=== PATIENT | female | born 1960 | race Caucasian/White ===

== ENCOUNTER 2020-09-05 13:09 | Emergency (ER) | payer OTHER ==
[~2020-09-05] VITALS: Ht 177.8 cm; Wt 97.5 kg
[2020-09-05 13:57] LABS: BASOPHILS ABSOLUTE AUTO 0.06 K/mm3 (0.00-0.23); BASOPHILS PERCENT AUTO 1 % (0-2); EOSINOPHILS ABSOLUTE AUTO 0.21 K/mm3 (0.00-0.68); EOSINOPHILS PERCENT AUTO 3 % (0-6); Hematocrit 43.3 % (33.0-51.0); Hemoglobin 14.2 g/dL (11.5-16.0); IMMATURE GRAN ABSOLUTE AUTO 0.02 K/mm3 (0.00-0.10); IMMATURE GRAN PERCENT AUTO 0 % (0-1); LYMPHOCYTES ABSOLUTE AUTO 2.08 K/mm3 (0.84-5.20); LYMPHOCYTES PERCENT AUTO 27 % (21-46); MONOCYTES ABSOLUTE AUTO 0.51 K/mm3 (0.16-1.47); MONOCYTES PERCENT AUTO 7 % (4-13); Mean Corpuscular HGB 32.3 pg (26.0-34.0); Mean Corpuscular HGB Conc 32.8 g/dL (31.5-36.5); Mean Corpuscular Volume 99 fL (80-100); Mean Platelet Volume 9.7 fL (9.1-12.4); NEUTROPHILS ABSOLUTE AUTO 4.82 K/mm3 (1.96-9.15); NEUTROPHILS PERCENT AUTO 63 % (41-73); Platelet Count 252 K/mm3 (150-400); RDW Coefficient Variation 13.2 % (11.7-14.2); RDW Standard Deviation 47.5 fL (35.1-46.3); Red Blood Cell Count 4.39 M/mm3 (3.80-5.20)
[2020-09-05 14:22] LABS: Alanine Aminotransfer (ALT/SGP 105 U/L (12-78); Albumin, Blood 3.9 g/dL (3.4-5.0); Albumin/Globulin Ratio 1.1 (0.8-1.8); Alk Phos 67 U/L (50-136); Anion Gap 7 mmol/L (6-16); Aspartate Aminotrans (AST/SGOT 113 U/L (12-37); Bilirubin, Total 0.7 mg/dL (0.1-1.0); Blood Urea Nitrogen 19 mg/dL (8-24); Bun/Creatinine Ratio 24.1 (12.0-20.0); CO2, Blood 28 mmol/L (21-32); Calcium, Blood 9.4 mg/dL (8.5-10.1); Chloride, Blood 106 mmol/L (98-108); Creatinine, Blood 0.79 mg/dL (0.40-1.00); Globulin, Blood 3.7 g/dL (2.2-4.0); Glomerular Filtration Rate >60 (60-); Glucose, Blood 92 mg/dL (70-99); Sodium, Blood 141 mmol/L (136-145); Total Protein, Blood 7.6 g/dL (6.4-8.2)
[2020-09-05] MEDS ORDERED: MIRALAX PO (20:06)
[2020-09-05] MEDS ORDERED: Valium5 MG PO (20:06)
[2020-09-05] MEDS ORDERED: DOCU100 PO (20:06)
[2020-09-05] MEDS ORDERED: Prednisone20 MG PO (20:06)
== END 2020-09-05 20:13 | disposition home or self-care (01) ==
LOC: ER 13:09
PROVIDERS: Physician Assistant
DX: K59.00 Constipation, unspecified (principal); G89.29 Other chronic pain; M54.5 Low back pain
CPT/HCPCS: 36415; 72100; 72170; 74177; 80053; 81000; 85025; 96374-59; 99284-25; A9270-GY; J1885; J7512; Q9967

== ENCOUNTER 2020-09-07 12:24 | Emergency (ER) | payer OTHER ==
[~2020-09-07] VITALS: Ht 177.8 cm; Wt 97.5 kg
[~2020-09-07 12:24] MED LIST: DOCU100 PO; MIRALAX PO; Prednisone20 MG PO; Valium5 MG PO
== END 2020-09-07 15:06 | disposition home or self-care (01) ==
LOC: ER 12:24
DX: G89.29 Other chronic pain (principal); M54.5 Low back pain; Z79.52 Long term (current) use of systemic steroids; Z79.899 Other long term (current) drug therapy
CPT/HCPCS: 96372-59; 99283-25; J1170; J1885